=== PATIENT | female | born 1950 | race African-American/Black ===

== ENCOUNTER 2023-02-16 13:00 | Emergency (ER) | payer BC ==
[~2023-02-16] VITALS: Ht 162.6 cm; Wt 77.0 kg
[~2023-02-16 13:00] MED LIST: ALLO300T2 MT; CLON0.1T PO; CLOP-31 MT; FAMO-135 MT; ISOS30TA12 MT; LACO150T2 MT; LOPHC5 PO; MECL-299 PO; OLME40TA18 PO
[2023-02-16 13:07] VITALS: O2SAT 100
[2023-02-16] MEDS ORDERED: CLOP75TA33 MT (14:18)
[2023-02-16] MEDS ORDERED: ISOS30TA12 MT (14:18)
[2023-02-16] MEDS ORDERED: METO-539 MT (14:18)
[2023-02-16] MEDS ORDERED: AMOX1TAB16 MT (14:18)
[2023-02-16 14:56] VITALS: BP 145/98; PULSE 58; RESP 16; TEMP 98.3
== END 2023-02-16 14:57 | disposition home or self-care (01) ==
LOC: ER 13:00
DX: Z76.0 Encounter for issue of repeat prescription (principal); K04.7 Periapical abscess without sinus; I25.2 Old myocardial infarction; I10 Essential (primary) hypertension; E11.9 Type 2 diabetes mellitus without complications; Z88.5 Allergy status to narcotic agent; Z79.899 Other long term (current) drug therapy; Z98.890 Other specified postprocedural states; Z86.73 Personal history of transient ischemic attack (TIA), and cerebral infarction without residual deficits; Z86.59 Personal history of other mental and behavioral disorders
CPT/HCPCS: 99281

== ENCOUNTER 2023-05-18 07:42 | Emergency (ER) | payer BC ==
[~2023-05-18] VITALS: Ht 160 cm; Wt 81.0 kg
[~2023-05-18 07:42] MED LIST changes: +AMOX1TAB16 MT; +CLOP75TA33 MT; +METO-539 MT
[2023-05-18 07:49] VITALS: BP 154/58; RESP 20; TEMP 98.3; O2SAT 100
[2023-05-18 07:56] VITALS: PULSE 60
[2023-05-18] MEDS ORDERED: CLOP-31 MT (08:02)
[2023-05-18] MEDS ORDERED: ISOS30TA12 MT (08:02)
== END 2023-05-18 08:42 | disposition home or self-care (01) ==
LOC: ER 07:42
DX: Z76.0 Encounter for issue of repeat prescription (principal); I25.2 Old myocardial infarction; I10 Essential (primary) hypertension; E11.9 Type 2 diabetes mellitus without complications; Z88.5 Allergy status to narcotic agent; Z79.899 Other long term (current) drug therapy; Z98.890 Other specified postprocedural states; Z86.73 Personal history of transient ischemic attack (TIA), and cerebral infarction without residual deficits; Z86.59 Personal history of other mental and behavioral disorders
CPT/HCPCS: 99281

== ENCOUNTER 2023-05-20 07:20 | Emergency (ER) | payer BC ==
[~2023-05-20] VITALS: Ht 160 cm; Wt 83.0 kg
[2023-05-20 07:22] VITALS: PULSE 58
[2023-05-20 07:42] VITALS: BP 162/51; RESP 18; TEMP 98.4; O2SAT 99
[2023-05-20] MEDS ORDERED: ISOS30TA91 MT (08:38)
== END 2023-05-20 08:46 | disposition home or self-care (01) ==
LOC: ER 07:20
DX: Z76.0 Encounter for issue of repeat prescription (principal); I25.2 Old myocardial infarction; I10 Essential (primary) hypertension; E11.9 Type 2 diabetes mellitus without complications; Z68.32 Body mass index [BMI] 32.0-32.9, adult; Z88.5 Allergy status to narcotic agent; Z79.899 Other long term (current) drug therapy; Z98.890 Other specified postprocedural states; Z86.73 Personal history of transient ischemic attack (TIA), and cerebral infarction without residual deficits; Z86.59 Personal history of other mental and behavioral disorders
CPT/HCPCS: 99281

== ENCOUNTER 2023-06-17 08:11 | Emergency (ER) | payer BC ==
[~2023-06-17] VITALS: Ht 167.6 cm; Wt 91.0 kg
[~2023-06-17 08:11] MED LIST changes: +ISOS30TA91 MT
[2023-06-17 08:17] VITALS: PULSE 87; RESP 18
[2023-06-17 08:29] VITALS: BP 157/41; TEMP 98.4; O2SAT 100
[2023-06-17] MEDS ORDERED: ISOS30TA91 MT (09:01)
[2023-06-17] MEDS ORDERED: CLOP75TA33 MT (09:01)
[2023-06-17] MEDS ORDERED: MECL-299 PO (09:01)
== END 2023-06-17 10:57 | disposition home or self-care (01) ==
LOC: ER 08:11
DX: R42 Dizziness and giddiness (principal); E11.9 Type 2 diabetes mellitus without complications; I25.2 Old myocardial infarction; Z76.0 Encounter for issue of repeat prescription; Z88.5 Allergy status to narcotic agent; Z79.899 Other long term (current) drug therapy; Z98.890 Other specified postprocedural states; Z86.73 Personal history of transient ischemic attack (TIA), and cerebral infarction without residual deficits; Z86.59 Personal history of other mental and behavioral disorders
CPT/HCPCS: 99281